=== PATIENT | female | born 1940 | race Two or more races ===

== ENCOUNTER → 2022-08-13 08:00 | Outpatient (CLI) | payer OTHER | END | disposition home or self-care (01) | LOC: LAB 08:00 → ADM 09:00 → EDSTATUS 08-19 09:00 → AMB-ENDOS 08-19 09:00 | PROVIDERS: ATTEND Surgery | DX: Z03.818 Encounter for observation for suspected exposure to other biological agents ruled out (principal); D37.5 Neoplasm of uncertain behavior of rectum; D12.8 Benign neoplasm of rectum ==

== ENCOUNTER 2022-10-25 08:35 | Day surgery (SDC) | payer OTHER | END 2022-10-25 13:30 | disposition home or self-care (01) | LOC: AMB-ENDOS 08:35 | PROVIDERS: ATTEND Surgery | DX: D12.8 Benign neoplasm of rectum (principal); R19.5 Other fecal abnormalities; K64.8 Other hemorrhoids; K57.90 Diverticulosis of intestine, part unspecified, without perforation or abscess without bleeding; Z20.822 Contact with and (suspected) exposure to COVID-19 ==